=== PATIENT | male | born 1990 | race Caucasian/White ===

== ENCOUNTER 2022-12-23 00:09 | Emergency (ER) | payer OTHER, SELFPAY ==
[2022-12-23 00:11] VITALS: BP 133/85; PULSE 83; RESP 16; TEMP 36.6; O2SAT 99; BMI 25.0
--- NOTE | 2022-12-23 00:46 | EX.ED.DYSGE1 ---
HPI History of Present Illness Chief Complaint: Wound Check Informant: patient and spouse/S.O. Narrative Narrative: Patient is a 32-year-old male with past medical history of spinal cord injury. The previous spinal cord injury has caused him to the need to perform self catheterizations. Secondary to this chronic issue he has had a sacral nerve stimulator placed to see if the stimulator can lead to regeneration of his bladder nerves. Patient states that this evening he noticed that his dressing was becoming undone and he did not have any type of supplies at home to reinforce or support the dressing and therefore comes in for evaluation. He denies any fevers chills or concern for infection. PFSH PFS Medical History unable to obtain Home Medications Unobtainable 12/23/22 [History Last Taken Unknown] Allergy/AdvReac Type Severity Reaction Status Date / Time No Known Allergies Allergy Verified 12/23/22 00:10 Social History Smoking Status: Never smoker ROS ROS ED Constitutional Constitutional ED: Denies chills or fever(s) ENT ENT ED: Denies sore throat Cardiovascular Cardiovascular: Denies chest pain Respiratory/Chest Respiratory/Chest: Denies cough or dyspnea Gastrointestinal Gastrointestinal: Denies abdominal pain, diarrhea, nausea or vomiting Musculoskeletal Musculoskeletal: Denies myalgias Integumentary Reports other Details: Positive surgical wound Neurologic Neurologic: Denies headache(s) Hematologic/Lymphatic Hematologic/Lymphatic: Denies easy bleeding or easy bruising EXAM Physical Exam Const Vital Signs: 12/23/22 00:11 Temperature 98 F Temperature Source Temporal Pulse Rate 83 Respiratory Rate 16 Blood Pressure 133/85 H Blood Pressure Mean 101 Pulse Ox 99 Positive well nourished and well developed General Appearance ED: well developed HEENT HEENT Narrative: Normocephalic atraumatic Eyes PERRL and EOMs intact bilaterally Neck supple Resp normal respiratory effort and clear to auscultation bilaterally Cardio regular rate and regular rhythm Extremity normal to inspection Neuro oriented x3 and CN's II-XII intact bilaterally Sensorium / Orientation: alert Psych mental status grossly normal Skin no rashes or lesions noted Skin Narrative: Patient has surgical wound from recent stimulator placement. No secondary changes to suggest infection MDM MDM MDM Narrative Medical decision making narrative: Patient presented to the ER with stable vitals and reported that his wound dressing was coming off. By exam there were no secondary changes to suggest infection or dehiscence. Therefore do not feel there is need for any type of imaging or laboratory studies. The wound was simply redressed by the nurse. Therefore at this time as he does not have signs of dehiscence recurrent bleeding or signs of infection there is no need for any type of imaging or laboratory studies and is otherwise safe for discharge. History & Record Review Discussion w/independent historian: Patient and Significant other Discharge Plan Triage Chief Complaint: Wound Check ED Provider: Alphonse Hercules Dx/Rx/DC Orders Clinical Impression: Encounter for post surgical wound check, History of spinal cord injury Instructions: ED Post Op Wound Check, General Prescriptions: No Action Unobtainable [facility] [Primary Care Provider] - Disposition Disposition: Home, Self Care Discharge Date/Time: 12/23/22 00:48
== END 2022-12-23 00:48 | disposition home or self-care (01) ==
PROVIDERS: Emergency Provider Emergency Medicine; Visit Provider Emergency Medicine
DX: Z51.89 Encounter for other specified aftercare (principal)
CPT/HCPCS: 99282

== ENCOUNTER → 2023-08-19 | Outpatient (CLI) | payer OTHER, SELFPAY ==
--- NOTE | 2023-08-21 14:41 | STRESSREP ---
Stress Test Report Date: 08/19/2023 Procedure: Exercise tolerance test Indications: Palpitations Consent: Per the patient Procedure: The patient exercised on a Bertrand protocol for 9 minutes and 59 seconds achieving a peak heart rate of 196 bpm (103% predicted maximal heart rate) with a peak blood pressure 144/84 mmHg and a peak MET capacity of approximately 13.3 MET's. The baseline ECG demonstrated sinus tachycardia. The peak exercise ECG demonstrated no significant ischemic changes. [There were no cardiac dysrhythmias pretest, during exercise, or recovery]. The functional capacity was considered normal for age. The patient had no complaint of chest discomfort during exercise or recovery. The examination was discontinued secondary to achieving target heart rate. Impression: 1. Technically adequate (percent predicted maximal heart rate greater than 85%) exercise tolerance test 2. Stress test is negative for exercise-induced chest pain. 3. Stress test test is negative for exercise-induced EKG changes of ischemia. 4. Functional capacity is normal for age This note was generated with [email or web address] software. It may contain incorrect words, spelling, and punctuation that were not noted in checking the note before signing.
== END | disposition home or self-care (01) ==
DX: R00.2 Palpitations (principal)
CPT/HCPCS: 93017

== ENCOUNTER → 2023-10-10 | Outpatient (CLI) | payer OTHER, SELFPAY ==
--- NOTE | 2023-10-10 06:59 | ECHOD_ITS ---
Reason For Study: PALPITATIONS Procedure This was a 2D Doppler, Color Flow transthoracic echocardiogram. Exam performed in department. Left Ventricle Normal LV size. Left ventricular systolic function is normal. The left ventricular ejection fraction is 55 %. Normal diastology for age. No regional wall motion abnormalities noted. Right Ventricle Normal RV size. Normal systolic function. Atria Normal left atrium. Normal right atrium. Mitral Valve Normal mitral valve. Tricuspid Valve Normal tricuspid valve. Aortic Valve Normal aortic valve. Pulmonic Valve Normal pulmonic valve. Great Vessels Normal aortic root. The pulmonary artery is normal size. Normal inferior vena cava. Pericardium/Pleural No pericardial effusion. MMode/2D Measurements & Calculations LVIDd: 4.1 cm IVSd: 0.84 cm Ao root diam: 2.8 cm LVIDs: 2.9 cm LVPWd: 0.81 cm RVDd: 2.9 cm FS: 30.6 % LAV(MOD-bp): 25.1 ml LVAd ap4: 20.5 cm2 LVAd ap2: 20.5 cm2 LAV(MOD-bp) Indexed: 14.3 ml/m2 LVLd ap4: 7.3 cm LVLd ap2: 7.6 cm LAV(MOD-sp2): 25.4 ml EDV(MOD-sp4): 49.6 ml EDV(MOD-sp2): 46.9 ml LAV(MOD-sp4): 25.1 ml EDV(sp4-el): 48.9 ml EDV(sp2-el): 47.1 ml LVAs ap4: 11.8 cm2 LVAs ap2: 11.4 cm2 LVLs ap4: 5.5 cm LVLs ap2: 6.1 cm ESV(MOD-sp4): 22.5 ml ESV(MOD-sp2): 18.5 ml ESV(sp4-el): 21.3 ml ESV(sp2-el): 18.2 ml EF(MOD-sp4): 54.6 % EF(MOD-sp2): 60.6 % EF(sp4-el): 56.5 % SV(MOD-sp4): 27.1 ml SV(MOD-sp2): 28.4 ml SV(sp4-el): 27.6 ml LA dimension(2D): 3.0 cm LA A4 area: 11.2 cm2 RA A4 area: 8.2 cm2 TAPSE: 2.3 cm Time Measurements MV dec time: 0.12 sec Doppler Measurements & Calculations MV E max russ: 63.8 cm/sec Lat Peak E' Russ: 13.2 cm/sec Med Peak E' Russ: 12.8 cm/sec MV A max russ: 55.1 cm/sec E/E' lat: 4.8 E/E' med: 5.0 MV E/A: 1.2 MV V2 max: 80.3 cm/sec MV P1/2t max russ: 72.3 cm/sec Ao V2 max: 101.2 cm/sec MV max P.6 mmHg MV P1/2t: 61.4 msec Ao max P.1 mmHg MV V2 mean: 57.3 cm/sec MV dec slope: 345.0 cm/sec2 Ao V2 mean: 72.5 cm/sec MV mean P.4 mmHg Ao mean P.3 mmHg MV V2 VTI: 16.9 cm MVA(P1/2t): 3.6 cm2 Ao V2 VTI: 15.9 cm AV (velocity ratio): 0.82 LV V1 max: 85.2 cm/sec PA V2 max: 94.7 cm/sec LV V1 max P.9 mmHg PA V2 mean: 68.6 cm/sec LV V1 mean P.5 mmHg LV V1 mean: 59.6 cm/sec LV V1 VTI: 13.0 cm ECHO/Echo Complete Interpretation Summary Normal LV size. Left ventricular systolic function is normal. The left ventricular ejection fraction is 55 %. Normal diastology for age. Ordering Physician: Yu Sotomayor Referring Physician: [facility] Performed By: Verena Lucas RDCS, RVT
== END | disposition home or self-care (01) ==
LOC: CVS 06:58
PROVIDERS: Referring Provider Nurse Practitioner Adult Health; Visit Provider Nurse Practitioner Adult Health
DX: R00.2 Palpitations (principal); R00.0 Tachycardia, unspecified
CPT/HCPCS: 93306

== ENCOUNTER 2024-05-14 16:18 | Outpatient (CLI) | payer OTHER, SELFPAY ==
[2024-05-14 17:30] LABS: Erythrocyte Sedimentation Rate 1 mm/hr (0-20)
[2024-05-14 17:57] LABS: ALB/GLOB Ratio 1.1 RATIO (0.9-2.4); AST(SGOT) 22 U/L (15-37); Alanine Aminotransfer ALT/SGPT 59 U/L (16-61); Albumin, Serum 4.2 g/dL (3.2-5.0); Alkaline Phosphatase 99 U/L (45-117); Anion Gap 4 (5-15); BUN 15 mg/dL (7-18); BUN/Creat Ratio 13.2 RATIO (10-20); CPK Total, Creatine Kinase 116 U/L (39-308); CRP < 2.90 mg/L (0.0-3.0); Calcium,Total 9.5 mg/dL (8.5-10.1); Chloride 104 mmol/L (98-107); Creatinine, Serum 1.14 mg/dL (0.70-1.30); EST Glomerular Filtration Rate 79 mL/min (>60); Est Glom Filt Rate - Afr Amer 95 mL/min (>60); Ferritin 88 ng/mL (26-388); Globulin 3.8 g/dL (2.2-4.2); Glucose 100 mg/dL (74-106); LDH 179 U/L (87-241); Sodium Level 138 mmol/L (136-145); Thyroid Stim Hormone (TSH) 0.881 uIU/mL (0.358-3.740)
[2024-05-17 10:02] LABS: Vitamin B12 > 2000 pg/mL (211-911)
[2024-05-20 09:08] LABS: Anti-Mitochondrial AB <20.0 Units (0.0-20.0); Beef <0.10 kU/L (Class 0); Chocolate <0.10 kU/L (Class 0); Codfish <0.10 kU/L (Class 0); Corn <0.10 kU/L (Class 0); Egg, Whole <0.10 kU/L (Class 0); Milk (Cow) <0.10 kU/L (Class 0); Mussels <0.10 kU/L (Class 0); Peanut <0.10 kU/L (Class 0); Pork <0.10 kU/L (Class 0); Salmon <0.10 kU/L (Class 0); Shrimp <0.10 kU/L (Class 0); Soybean <0.10 kU/L (Class 0); Tuna <0.10 kU/L (Class 0); Wheat <0.10 kU/L (Class 0)
[2024-05-21 12:08] LABS: ACCA 6 units (0-90); ALCA 3 units (0-60); AMCA 19 units (0-100); Albumin 4.3 g/dL (2.9-4.4); Aldolase 5.1 U/L (3.3-10.3); Alpha-1-Globulins 0.3 g/dL (0.0-0.4); Angiotensin Convert Enzyme 72 U/L (14-82); Anti-Smooth Muscle ABS 4 Units (0-19); Chromogranin A 63.1 ng/mL (0.0-101.8); Cytoplasmic Ab (C-ANCA) <1:20 titer (Neg:<1:20); Dopamine, Pl <30 pg/mL (0-48); Endomysial Antibody IgA Negative (Negative); Epinephrine, Pl 62 pg/mL (0-62); Gamma Globulin 0.9 g/dL (0.4-1.8); HEPATITIS B SURFACE AG Negative (Negative); Hep C Antibodies Non Reactive (Non Reactive); Hepatitis A IgM Antibody Negative (Negative); Hepatitis B Core AB IgM Negative (Negative); IgG, Quant 918 mg/dL (603-1613); Immunoglobulin A 118 mg/dL (90-386); Immunoglobulin E 8 IU/mL (6-495); Immunoglobulin G, Subclass 1 583 mg/dL (248-810); Immunoglobulin G, Subclass 2 108 mg/dL (130-555); Immunoglobulin G, Subclass 3 30 mg/dL (15-102); Immunoglobulin G, Subclass 4 17 mg/dL (2-96); Immunoglobulin M 108 mg/dL (20-172); Norepinephrine, Pl 391 pg/mL (0-874); PROEL- TOTAL PROTEIN 7.9 g/dL (6.0-8.5); Perinuclear Ab (P-ANCA) <1:20 titer (Neg:<1:20); QNTFERON TB Mitogen Value > 10.00 IU/mL (.); QNTFERON TB Nil Value 0.01 IU/mL (.); QNTFERON TB1+ Ag Value 0.02 IU/mL (.); QNTFERON TB2+ Ag Value 0.02 IU/mL (.); QNTIFERON TB Positive Criteria Negative (Negative); gASCA 8 units (0-50); t-Transglutaminase IgA <2 U/mL (0-3)
== END 2024-05-14 23:59 | disposition home or self-care (01) ==
PROVIDERS: Referring Provider Internal Medicine Gastroenterology; Visit Provider Internal Medicine Gastroenterology
DX: R10.9 Unspecified abdominal pain (principal); K62.5 Hemorrhage of anus and rectum
CPT/HCPCS: 36415; 80053; 80074; 82085; 82164; 82384; 82550; 82607; 82728; 82746; 82784; 82785; 82787; 83516; 83615; 84165; 84443; 85652; 86003; 86005; 86036; 86037; 86140; 86255; 86316; 86334; 86480; 86671

== ENCOUNTER 2024-08-09 06:46 | Day surgery (SDC) | payer OTHER, SELFPAY ==
--- NOTE | 2024-08-04 16:27 | PAT.ANE_ITS ---
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 When Was Last Pacemaker Check QUESTION #4 FULL TEXT: You/Your Family Experience fever (hyperthermia) with Anesthesia Last Oral Intake Last Oral intake: Last Oral Intake NPO since Meds taken in AM with sips of water? 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 - biblical languages professor: PONV - biblical languages professor Female No 08/04/24 12:12 HX of Motion Sickness No 08/04/24 12:12 HX of N/V After Surgery No 08/04/24 12:12 Non-Smoker Yes 08/04/24 12:12 Duration of Surgery greater No 08/04/24 12:12 than 60 minutes Number of Risk Factors 1 08/04/24 12:12 PONV Score Low Risk 08/04/24 12:12 Height & Weight Height & Weight: Anesthesia: Height & Weight Height 5 ft 5 in 12/23/22 00:11 Respiratory Assessment Respiratory Assessment - biblical languages professor: Respiratory Tract Infection Hx - biblical languages professor Hx Respiratory Tract Infection No 08/04/24 12:12 STOP Sleep Apnea STOP Sleep Apnea - biblical languages professor: STOP Sleep Apnea - biblical languages professor Hx Hypertension No 08/04/24 12:12 Hx Sleep Apnea No 08/04/24 12:12 CPAP BIPAP Do you snore loudly (louder No 08/04/24 12:12 than talking or can be heard Do you often feel tired/ No 08/04/24 12:12 fatigued/ sleepy during daytime? Has anyone observed you stop No 08/04/24 12:12 breathing during sleep? STOP Results Negative 08/04/24 12:12 QUESTION #5 FULL TEXT : Do you snore loudly (louder than talking or can be heard through closed doors)? 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 Specify any problems Hx of Preganancy in last 3 N/A 08/04/24 12:12 Months Nurse Filling Out Transfusion VCHRISTIN 08/04/24 12:12 & Questions: Date: 08/04/24 08/04/24 12:12 Time: 12:14 08/04/24 12:12 Patient unable to answer at this time (ie. 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 History - biblical languages professor: /Reproductive Hx- biblical languages professor Hx Now Gestational Age (in weeks): EDC: Hx Hx Para Hx Section SAB [facility] Medical History (Updated 08/04/24 @ 12:12 by Brenna Cruz) Wears contact lenses Wears glasses Back pain Injury of back Gastric reflux Chewing tobacco dependence History of pain when walking History of echocardiogram History of stress test Vertigo Restless legs Tinnitus Hearing loss Low back pain Urinary frequency Migraine Neurogenic bladder Male infertility Transverse myelitis Abdominal pain Hemorrhage of anus and rectum Home Medications ?Medication ?Instructions ?Recorded ?Last Taken ?Type cyanocobalamin (vitamin B-12) 1,000 mcg PO QDAY Unknown History 1,000 mcg tablet magnesium oxide 420 mg tablet 420 mg PO QDAY 03/04/24 Unknown History omeprazole 20 mg tablet,delayed 20 mg PO QDAY 03/04/24 Unknown History release riboflavin (vitamin B2) 100 mg 200 mg PO BID 03/04/24 Unknown History tablet rizatriptan 10 mg disintegrating See Rx Instructions P O .COMPLEX 03/04/24 Unknown History tablet ropinirole 0.25 mg tablet 0.5 mg PO QHS 03/04/24 Unkno wn History atenolol 25 mg tablet 25 mg PO DAILY 08/04/24 Unkn own History Allergy/AdvReac Type Severity Reaction Status Date / Time No Known Allergies Allergy Verified 08/04/24 11:57 Family History Other Colon cancer Surgical History (Updated 08/04/24 @ 12:12 by Brenna Cruz) Hx of eye surgery Hx of surgical procedure Social History Smoking Status: Never smoker Audit: Pertinent Findings Pertinent Findings Stress test pertinent findings: 08/19/2023. Negative. Echo (EF%) pertinent findings: 10/10/2023. EF 55% Recommendation Anesthesia Recommendation Anesthesia recommendation: OPTIMIZED for anesthesia
[2024-08-09] VITALS (8 sets, daily range): BP systolic 86–99; BP diastolic 54–78; PULSE 59–72; RESP 14–16; TEMP 36.1–36.6; O2SAT 95–100; BMI 27.2
--- NOTE | 2024-08-09 07:28 | PRE.ANES_ITS ---
ASA Classification* ASA Classification ASA Classification: 2 Assessment & Plan Anesthesia* Anesthesia Assessment Anesthesia Assessment: Discussed sedation and/or anesthesia options, risks, benefits, and alternatives with patient/parents/legal guardian/POA. Questions invited. The patient/parents/legal guardian/POA seems to understand and agrees to proceed with anesthesia plan. Reviewed the physical assessment, medical history, allergy history and patient home medications list prior to surgery/procedure/anesthetic and documented any changes. Performed airway and anesthesia risk assessments. Anesthesia Type Anesthesia Type: MAC Anesthesia Focused Assessment* Temperature: 97.8 F Pulse Rate: 68 Blood Pressure: 99/74 Respiratory Rate: 16 Pulse Ox: 100 Airway Assessment Mouth opens: >3 cm Mallampati Score: II Focused Labs Anesthesia Preop lab: CBC CHEMISTRY Potassium 4.0 mmol/L (3.5-5.1) 05/14/24 16:34 05/14/24 Sodium 138 mmol/L (136-145) 05/14/24 16:34 05/14/24 BUN 15 mg/dL (7-18) 05/14/24 16:34 05/14/24 Creatinine 1.14 mg/dL (0.70-1.30) 05/14/24 16:34 05/14/24 Glucose 100 mg/dL (74-106) 05/14/24 16:34 05/14/24 TSH 0.881 uIU/mL (0.358-3.740) 05/14/24 16:34 04/28 11/19 COAG Pre-Assessment Diagnosis/Proposed Procedure Planned Operative Procedure(s): COLONOSCOPY/EGD Anesthesia History 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 When Was Last Pacemaker Check QUESTION #4 FULL TEXT: You/Your Family Experience fever (hyperthermia) with Anesthesia Last Oral Intake Last Oral intake: Last Oral Intake NPO since 04:15 08/09/24 07:13 Meds taken in AM with sips of No 08/09/24 07:13 water? 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 Female No 08/04/24 12:12 HX of Motion Sickness No 08/04/24 12:12 HX of N/V After Surgery No 08/04/24 12:12 Non-Smoker Yes 08/04/24 12:12 Duration of Surgery greater No 08/04/24 12:12 than 60 minutes Number of Risk Factors 1 08/04/24 12:12 PONV Score Low Risk 08/04/24 12:12 Height & Weight Height & Weight: Anesthesia: Height & Weight Height 5 ft 5 in 08/09/24 07:13 Weight: 74.3 kg 08/09/24 07:13 Body Mass Index (BMI) 27.2 08/09/24 07:13 Respiratory Assessment Respiratory Assessment - automatic drilling machine operator: Respiratory Tract Infection Hx - automatic drilling machine operator Hx Respiratory Tract Infection No 08/04/24 12:12 STOP Sleep Apnea STOP Sleep Apnea - automatic drilling machine operator: STOP Sleep Apnea - automatic drilling machine operator Hx Hypertension No 08/04/24 12:12 Hx Sleep Apnea No 08/04/24 12:12 CPAP BIPAP Do you snore loudly (louder No 08/04/24 12:12 than talking or can be heard Do you often feel tired/ No 08/04/24 12:12 fatigued/ sleepy during daytime? Has anyone observed you stop No 08/04/24 12:12 breathing during sleep? STOP Results Negative 08/04/24 12:12 QUESTION #5 FULL TEXT : Do you snore loudly (louder than talking or can be heard through closed doors)? 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 Specify any problems Hx of Preganancy in last 3 N/A 08/04/24 12:12 Months Nurse Filling Out Transfusion VCHRISTIN 08/04/24 12:12 & Questions: Date: 08/04/24 08/04/24 12:12 Time: 12:14 08/04/24 12:12 Patient unable to answer at this time (ie. 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 machine operator Hx Now Gestational Age (in weeks): EDC: Hx Hx Para Hx Section SAB PFSH Medical History Wears contact lenses Wears glasses Back pain Injury of back Gastric reflux Chewing tobacco dependence History of pain when walking History of echocardiogram History of stress test Vertigo Restless legs Tinnitus Hearing loss Low back pain Urinary frequency Migraine Neurogenic bladder Male infertility Transverse myelitis Abdominal pain Hemorrhage of anus and rectum Home Medications ?Medication ?Instructions ?Recorded ?Last Taken ?Type cyanocobalamin (vitamin B-12) 1,000 mcg PO QDAY Unknown History 1,000 mcg tablet magnesium oxide 420 mg tablet 420 mg PO QDAY 03/04/24 Unknown History omeprazole 20 mg tablet,delayed 20 mg PO QDAY 03/04/24 Unknown History release riboflavin (vitamin B2) 100 mg 200 mg PO BID 03/04/24 Unknown History tablet rizatriptan 10 mg disintegrating See Rx Instructions P O .COMPLEX 03/04/24 Unknown History tablet ropinirole 0.25 mg tablet 0.5 mg PO QHS 03/04/24 Unkno wn History atenolol 25 mg tablet 25 mg PO DAILY 08/04/24 Unkn own History Allergy/AdvReac Type Severity Reaction Status Date / Time No Known Allergies Allergy Verified 08/09/24 07:08 Family History Other Colon cancer Surgical History Hx of eye surgery Hx of surgical procedure Social History Smoking Status: Never smoker Review of Systems (Anesthesia) ROS Narrative System reviewed and no additional complaints, except as documented.
--- NOTE | 2024-08-09 07:45 | COLBX_PTH ---
PATIENT: REYES REYNOLDS LOC: EN U#:[id number] AGE/SX: 33/M ROOM: RE08/09/[address]: Dr. Nir Lyons DO : 1990 BED: DIS: 08/09/2024 SPEC #: [id number] RECD: 08/09/24 10:58 STATUS: TAYLER CAMILO #: [id number] ANALIA: 08/09/24 07:[address]: Nir Lyons DEPT: SURGICAL PATHOLOGY RECD BY: Sanjay Parker ENTERED: 08/09/24 11:30 SP TYPE: COLON BX OTHR DR: [facility] Tissues: A - Duodenum, NOS B - Gastric mucous membrane C - Ileum, NOS Procedures: Immunohistochemical Stains Surgery Specimen Level IV HEADER OPERATION: Colonoscopy with biopsy, EGD with biopsy PRE-OP DIAGNOSIS: Abdominal pain, hemorrhage of anus and rectum TISSUE SUBMITTED: A- Duodenum biopsy, B- Gastric body biopsy, C- Terminal ileum biopsy MICROSCOPIC DIAGNOSIS A. Small bowel, duodenum, biopsy: * Normal villous architecture with no specific pathologic change. * Negative for increased intraepithelial lymphocytes B. Stomach, body, biopsy: * Oxyntic mucosa with slight chronic inflammation. * IHC negative for H pylori organisms C. Small bowel, terminal ileum, biopsy: * Normal villous architecture with mucosal lymphoid aggregates, favor reactive. MICROSCOPIC DESCRIPTION Slides are reviewed. These tests were developed and their performance characteristics determined by [facility]. They may not have been cleared or approved by the U.S. Food and Drug Administration. The FDA has determined that such clearance or approval is not necessary. The above immunohistochemical/dualISH markers are ordered and reviewed by the Pathologist. GROSS DESCRIPTION A. Received in formalin in a container labeled with the patient's name, date of , and duodenum biopsy are multiple gifford-pink fragments of mucosal tissue measuring 0.7 x 0.6 x 0.2 cm in aggregate. Submitted in toto in A1. B. Received in formalin in a container labeled with the patient's name, date of , and gastric body for H. pylori and pathology are 2 gifford-pink fragments of mucosal tissue measuring 0.2 x 0.2 x 0.2 cm and 0.8 x 0.3 x 0.2 cm. Submitted in toto in B1. C. Received in formalin in a container labeled with the patient's name, date of , and terminal ileum biopsy are multiple gifford-pink fragments of mucosal tissue measuring 1.5 x 0.7 x 0.2 cm in aggregate. Submitted in toto in C1. SMB 08/16/2024 CPT:61328g3,79824
--- NOTE | 2024-08-09 08:02 | PCM.HP.STD ---
HPI - General General Date of Admission: 08/09/24 Date of Service: 08/09/24 Chief Complaint: lower GI bleeding HPI Narrative REYES REYNOLDS, is a 33 M who presents to the office today for an evaluation lower GI bleeding. Patient reports intermittent rectal bleeding over the last few years. Became more frequent this past December. Will see bright red blood when wiping after a BM. States the last couple weeks it has not been as severe. Denies pain with BM. Has 1-3 BM daily. Denies straining. Has intermittent diarrhea. Has lower abdominal pain and cramping with BMs. Has been taking OTC probiotic that has been somewhat helpful. He also has a history of recurrent transverse myelitis resulting in urinary outflow problems and need to self cath. He had a spinal stimulator placed that has not helped his urinary issues. The bleeding started approximately 12 years ago with intermittent crampy abdominal pain. He has no family history of ulcerative colitis. He has no history of any liver disease. His weight has been stable. He did get a rash on his lower extremity but he thought that was associated with a possible contrast dye allergy from his CT scan. He does not take any blood thinners. He has no bleeding issues with spontaneous bleeding or easily bruising. He has no known food allergies. [facility] Medical History Wears contact lenses Wears glasses Back pain Injury of back Gastric reflux Chewing tobacco dependence History of pain when walking History of echocardiogram History of stress test Vertigo Restless legs Tinnitus Hearing loss Low back pain Urinary frequency Migraine Neurogenic bladder Male infertility Transverse myelitis Abdominal pain Hemorrhage of anus and rectum Home Medications ?Medication ?Instructions ?Recorded ?Last Taken ?Type cyanocobalamin (vitamin B-12) 1,000 mcg PO QDAY 03/04/24 Unknown History 1,000 mcg tablet magnesium oxide 420 mg tablet 420 mg PO QDAY 03/04/24 Unknown History omeprazole 20 mg tablet,delayed 20 mg PO QDAY 03/04/24 Unknown History release riboflavin (vitamin B2) 100 mg 200 mg PO BID 03/04/24 Unknown History tablet rizatriptan 10 mg disintegrating See Rx Instructions PO .COMPLEX 03/04/24 Unknown History tablet ropinirole 0.25 mg tablet 0.5 mg PO QHS 03/04/24 Unknown History atenolol 25 mg tablet 25 mg PO DAILY 08/04/24 Unknown History Allergy/AdvReac Type Severity Reaction Status Date / Time No Known Allergies Allergy Verified 08/09/24 07:08 Family History Other Colon cancer Surgical History Hx of eye surgery Hx of surgical procedure Social History Smoking Status: Never smoker ROS Constitutional Constitutional: Denies fatigue, fever(s), poor appetite, weight gain or weight loss Gastrointestinal Gastrointestinal: Denies belching, bloating, change in bowel habits, change in stool character, chewing difficulty, coffee ground emesis, constipation, cramping, diarrhea, dyspepsia, dysphagia, early satiety, excessive flatus, fecal incontinence, heartburn, hematemesis, hematochezia, hemorrhoids, loose stools, melena, nausea, odynophagia, rectal bleeding, tenesmus, vomiting or weight changes Vital Signs Vital Signs Vital Signs: 08/09/24 07:13 08/09/24 07:13 08/09/24 07:29 Temperature 97.8 F 97.8 F Temperature Source Temporal Pulse Rate 68 68 Respiratory Rate 16 16 Respiratory Pattern Normal Blood Pressure 99/74 99/74 Blood Pressure Mean 82 Blood Pressure Source Monitor Blood Pressure Position Sitting Blood Pressure Location Left Arm Pulse Ox 100 100 Oxygen Delivery Method Room Air Weight Weight: 163 lb 12.855 oz Body Mass Index (BMI) 27.2 Physical Exam Const alert, oriented x3, no apparent distress and healthy appearing General Appearance: cooperative GI normal to inspection, nondistended, normoactive bowel sounds, soft to palpation, non-tender and non-distended Percussion: normal to percussion Rectal Exam: deferred Assessment & Plan Assessment/Plan (1) Abdominal pain: (2) Hemorrhage of anus and rectum: PLAN: Assessment and Plan Assessment and Plan (1) Abdominal pain: Status: Acute (2) Hemorrhage of anus and rectum: Status: Acute Plan: Differential diagnosis for his symptoms does include inflammatory bowel disease, vasculitis, celiac disease, IBS with lower GI bleeding, hemorrhoidal bleeding. He will undergo upper and lower endoscopy to evaluate his upper lower GI tract. Will also send biochemical workup for inflammatory bowel disease, celiac disease and other autoimmune disease. He is okay with this plan. Orders:
--- NOTE | 2024-08-09 08:45 | PCM.POST.ANE ---
Anesthesia: Postop Eval I Current Vital Signs Temperature: 97 F Pulse Rate: 72 Blood Pressure: 86/60 Respiratory Rate: 16 Pulse Ox: 96 Oxygen Delivery Method: Room Air Assessment Airway patent: Yes Spontaneous unlabored respirations: Yes Mental status: Asleep nausea: No Vomiting: No Anesthesia Complication: No Fluid Hydration Crystalloid volume administer (ml): 55 Total IV fluid infused: 55 Progress Note Anesthesia document: Postop Eval 1 completed: Yes
--- NOTE | 2024-08-09 08:48 | OP.CCLET_ITS ---
08/09/2024 [facility] Re : Upper GI endoscopy procedure for [facility] This procedure was performed on Friday, August 09, 2024. My impressions and recommendations are as follows: Impressions : - Normal esophagus. - Chronic gastritis. Biopsied. - Erythematous duodenopathy. Biopsied. Recommendations : - Discharge patient to home. - Resume previous diet. - Continue present medications. - Await pathology results. My findings are described in the full procedure note, which is enclosed. If I can be of further assistance, please feel free to contact me at . Sincerely, Nir Lyons, 08/09/2024 8:48:02 AM This report has been signed electronically.
--- NOTE | 2024-08-09 08:48 | OP.EGD_ITS ---
Patient Name: Asa Armando Procedure Date: 08/09/2024 8:35 AM Date of : 1990 Age: 33 Procedure: Upper GI endoscopy Indications: Epigastric abdominal pain Providers: Nir Lyons DO Referring MD: [facility] Medicines: Monitored Anesthesia Care Patient Profile: This is a 33 year old male. Refer to note in patient chart for documentation of history and physical. Patient has symptoms of chronic epigastric abdominal pain, chronic dyspepsia and chronic nausea. Complications: No immediate complications. Procedure: Pre-Anesthesia Assessment: - Prior to the procedure, a History and Physical was performed, and patient medications and allergies were reviewed. The patient is competent. The risks and benefits of the procedure and the sedation options and risks were discussed with the patient. All questions were answered and informed consent was obtained. Patient identification and proposed procedure were verified by the physician in the pre-procedure area. Mental Status Examination: alert and oriented. Airway Examination: normal oropharyngeal airway and neck mobility. Respiratory Examination: clear to auscultation. CV Examination: normal. Prophylactic Antibiotics: The patient does not require prophylactic antibiotics. Prior Anticoagulants: The patient has taken no anticoagulant or antiplatelet agents except for NSAID medication. ASA Grade Assessment: II - A patient with mild systemic disease. After reviewing the risks and benefits, the patient was deemed in satisfactory condition to undergo the procedure. The anesthesia plan was to use monitored anesthesia care (MAC). Immediately prior to administration of medications, the patient was re-assessed for adequacy to receive sedatives. The heart rate, respiratory rate, oxygen saturations, blood pressure, adequacy of pulmonary ventilation, and response to care were monitored throughout the procedure. The physical status of the patient was re-assessed after the procedure. After obtaining informed consent, the endoscope was passed under direct vision. Throughout the procedure, the patient's blood pressure, pulse, and oxygen saturations were monitored continuously. The gastroscope was introduced through the mouth, and advanced to the jejunum. Small bowel enteroscopy was deemed necessary. The upper GI endoscopy was accomplished without difficulty. The patient tolerated the procedure well. Scope In: 8:16:02 AM Scope Out: 8:19:24 AM Total Procedure Duration Time 0 hours 3 minutes 22 seconds Findings: The examined esophagus was normal. Diffuse mild inflammation characterized by erythema was found in the stomach. Biopsies were taken with a cold forceps for histology. Verification of patient identification for the specimen was done. Biopsies were taken with a cold forceps for Helicobacter pylori testing. Verification of patient identification for the specimen was done. Estimated blood loss was minimal. Patchy mildly erythematous mucosa without active bleeding and with no stigmata of bleeding was found in the duodenal bulb, in the first portion of the duodenum and in the third portion of the duodenum. Biopsies were taken with a cold forceps for histology. Verification of patient identification for the specimen was done. Estimated blood loss was minimal. A benign-appearing, intrinsic moderate stenosis was found at the pylorus. This was traversed. Impression: - Normal esophagus. - Chronic gastritis. Biopsied. - Erythematous duodenopathy. Biopsied. Recommendation: - Discharge patient to home. - Resume previous diet. - Continue present medications. - Await pathology results. Procedure Code(s): --- Professional --- 95163, Small intestinal endoscopy, enteroscopy beyond second portion of duodenum, not including ileum; with biopsy, single or multiple CPT copyright 2021 [employer]. All rights reserved. The codes documented in this report are preliminary and upon engineering associate review may be revised to meet current compliance requirements. Nir Lyons DO 08/09/2024 8:48:02 AM This report has been signed electronically. Number of Addenda: 0 Note Initiated On: 08/09/2024 8:35 AM
--- NOTE | 2024-08-09 08:51 | OP.CCLET_ITS ---
08/09/2024 Re : Colonoscopy procedure for [facility] This procedure was performed on Friday, August 09, 2024. My impressions and recommendations are as follows: Impressions : - Anal fissure. - Mild mucosal changes were found in the ileum secondary to ileitis. Biopsied. Recommendations : - Discharge patient to home. - Resume previous diet. - Continue present medications. - Await pathology results. - Repeat colonoscopy for surveillance based on pathology results. My findings are described in the full procedure note, which is enclosed. If I can be of further assistance, please feel free to contact me at . Sincerely, Nir Lyons, 08/09/2024 8:50:28 AM This report has been signed electronically.
--- NOTE | 2024-08-09 08:51 | OP.COLON_ITS ---
Patient Name: Asa Armando Procedure Date: 08/09/2024 8:08 AM Date of : 1990 Age: 33 Procedure: Colonoscopy Indications: Hematochezia Providers: Nir Lyons DO Referring MD: [facility] Medicines: Monitored Anesthesia Care Patient Profile: This is a 33 year old male. Refer to note in patient chart for documentation of history and physical. Last Colonoscopy: none. The patient's first colonoscopy is today. Complications: No immediate complications. Procedure: Pre-Anesthesia Assessment: - Prior to the procedure, a History and Physical was performed, and patient medications and allergies were reviewed. The patient is competent. The risks and benefits of the procedure and the sedation options and risks were discussed with the patient. All questions were answered and informed consent was obtained. Patient identification and proposed procedure were verified by the physician. Mental Status Examination: alert and oriented. Airway Examination: normal oropharyngeal airway and neck mobility. Respiratory Examination: clear to auscultation. CV Examination: normal. Prophylactic Antibiotics: The patient does not require prophylactic antibiotics. Prior Anticoagulants: The patient has taken no anticoagulant or antiplatelet agents except for NSAID medication. ASA Grade Assessment: II - A patient with mild systemic disease. After reviewing the risks and benefits, the patient was deemed in satisfactory condition to undergo the procedure. The anesthesia plan was to use monitored anesthesia care (MAC). Immediately prior to administration of medications, the patient was re-assessed for adequacy to receive sedatives. The heart rate, respiratory rate, oxygen saturations, blood pressure, adequacy of pulmonary ventilation, and response to care were monitored throughout the procedure. The physical status of the patient was re-assessed after the procedure. After I obtained informed consent, the scope was passed under direct vision. Throughout the procedure, the patient's blood pressure, pulse, and oxygen saturations were monitored continuously. The Colonoscope was introduced through the anus and advanced to the terminal ileum. The colonoscopy was performed without difficulty. The patient tolerated the procedure well. The quality of the bowel preparation was adequate. The terminal ileum, ileocecal valve, appendiceal orifice, and rectum were photographed. Scope In: 8:21:28 AM Scope Withdrawal Time 0 hours 9 minutes 7 seconds Scope Out: 8:34:11 AM Total Procedure Duration Time 0 hours 12 minutes 43 seconds Findings: The perianal and digital rectal examinations were normal. A 5 mm anal fissure was found in the anal canal. No other significant abnormalities were identified in a careful examination of the remainder of the colon. Patchy mild mucosal changes were found in the distal ileum and in the terminal ileum. Biopsies were taken with a cold forceps for histology. Verification of patient identification for the specimen was done. Estimated blood loss was minimal. Impression: - Anal fissure. - Mild mucosal changes were found in the ileum secondary to ileitis. Biopsied. Recommendation: - Discharge patient to home. - Resume previous diet. - Continue present medications. - Await pathology results. - Repeat colonoscopy for surveillance based on pathology results. Procedure Code(s): --- Professional --- 23400, Colonoscopy, flexible; with biopsy, single or multiple CPT copyright 2021 [employer]. All rights reserved. The codes documented in this report are preliminary and upon insurance coder review may be revised to meet current compliance requirements. Nir Lyons DO 08/09/2024 8:50:28 AM This report has been signed electronically. Number of Addenda: 0 Note Initiated On: 08/09/2024 8:08 AM
--- NOTE | 2024-08-09 09:08 | PCM.POSTANE2 ---
Anesthesia Postop Eval I Sum Postop Eval Completion status Anesthesia document: Postop Eval 1 completed: Yes Anesthesia Postop Eval I Summary Anesthesia Postop Eval I Summary: Anesthesia Postop Eval I: Assessment Summary Airway patent Yes 08/09/24 08:45 [email or web address] Spontaneous unlabored Yes 08/09/24 08:45 [email or web address] respirations Mental status Asleep 08/09/24 08:45 [email or web address] nausea No 08/09/24 08:45 [email or web address] Vomiting No 08/09/24 08:45 [email or web address] Anesthesia Postop Eval I: Fluid Summary Crystalloid volume administer 55 08/09/24 08:45 [email or web address] (ml) Colloids volume administered ( ml) Blood Product volume administered (ml) Total IV fluid infused 55 08/09/24 08:45 [email or web address] Anesthesia Postop Eval I: Summary Notes Anesthesia Complication No 08/09/24 08:45 [email or web address] Anesthesia Complication Comment: Post-operative progress note Anesthesia: Postop Eval II Evaluation Mental status: Awake Pain Level: 0 nausea: No Vomiting: No
--- NOTE | 2024-08-09 09:09 | EKG12_ITS ---
Test Reason : CHEST PRESSURE Blood Pressure : */* mmHG Vent. Rate : 55 BPM Atrial Rate : 55 BPM P-R Int : 96 ms QRS Dur : 94 ms QT Int : 398 ms P-R-T Axes : 49 52 35 degrees QTcB Int : 380 ms Sinus bradycardia with short ID Early repolarization Otherwise normal ECG No previous ECGs available Confirmed by Raheem Garcia ([id number]), photographic editor NEIL SOLER ([id number]) on 08/11/2024 10:10:08 AM Referred By: [facility] Confirmed By: Raheem Garcia
== END 2024-08-09 09:54 | disposition home or self-care (01) ==
LOC: EN 06:48 → AC 06:49
PROVIDERS: Visit Provider Internal Medicine Gastroenterology
PROC: 0DJD8ZZ Inspection of Lower Intestinal Tract, Via Natural or Artificial Opening Endoscopic (ICD-10-PCS; CPT 45378; principal; 2024-08-09 07:40)
DX: K62.5 Hemorrhage of anus and rectum (principal); K29.50 Unspecified chronic gastritis without bleeding; K60.2 Anal fissure, unspecified; K63.89 Other specified diseases of intestine; K21.9 Gastro-esophageal reflux disease without esophagitis; K31.89 Other diseases of stomach and duodenum; K31.1 Adult hypertrophic pyloric stenosis; Z79.899 Other long term (current) drug therapy
CPT/HCPCS: 45380; 43239; 88305; 88342; 93005; A4216; J2405

== ENCOUNTER 2024-08-23 10:41 | Emergency (ER) | payer OTHER, SELFPAY ==
[2024-08-23 10:41] VITALS: BP 113/81; PULSE 69; RESP 16; TEMP 36.5; O2SAT 100; BMI 26.4
--- NOTE | 2024-08-23 13:03 | ED.VIS.BACK ---
HPI <KERRY Rodriguez - Last Filed: 08/23/24 14:25> History of Present Illness Chief Complaint: Back Narrative Narrative: Patient presenting today with right upper back pain he has had since yesterday. He reports that his pain started after lifting up his son who is about 20 pounds. He had been repeatedly lifting his son yesterday and did notice immediate pain at 1 point while lifting him. He has been taking ibuprofen with minimal relief of his pain. He reports that the pain is worse with certain movements of his back and right shoulder. He does report mild paresthesias to his right upper extremity with movement of his right shoulder. He reports history of previous rotator cuff tear and has had similar symptoms to this in the past. He denies direct trauma to his back or right upper extremity. He denies any fevers or chills. No bowel/bladder incontinence or saddle paresthesia. [facility] <KERRY Rodriguez - Last Filed: 08/23/24 14:25> [facility] Medical History Wears contact lenses Wears glasses Back pain Injury of back Gastric reflux Chewing tobacco dependence History of pain when walking History of echocardiogram History of stress test Vertigo Restless legs Tinnitus Hearing loss Low back pain Urinary frequency Migraine Neurogenic bladder Male infertility Transverse myelitis Abdominal pain Hemorrhage of anus and rectum Home Medications ?Medication ?Instructions ?Recorded ?Last Taken ?Type cyanocobalamin (vitamin B-12) 1,000 mcg PO QDAY 03/04/24 Unknown History 1,000 mcg tablet magnesium oxide 420 mg tablet 420 mg PO QDAY 03/04/24 Unknown History omeprazole 20 mg tablet,delayed 20 mg PO QDAY 03/04/24 Unknown History release riboflavin (vitamin B2) 100 mg 200 mg PO BID 03/04/24 Unknown History tablet rizatriptan 10 mg disintegrating See Rx Instructions PO .COMPLEX 03/04/24 Unknown History tablet ropinirole 0.25 mg tablet 0.5 mg PO QHS 03/04/24 Unknown History atenolol 25 mg tablet 25 mg PO DAILY 08/04/24 Unknown History metaxalone 800 mg tablet 800 mg PO TID PRN muscle pain #21 08/23/24 Unknown Rx tabs naproxen 500 mg tablet (Naprosyn) 500 mg PO BID PRN pain #20 tabs 04/28/25 Unknown Rx Allergy/AdvReac Type Severity Reaction Status Date / Time No Known Allergies Allergy Verified 08/23/24 10:41 Family History Other Colon cancer Surgical History Hx of eye surgery Hx of surgical procedure Social History Smoking Status: Never smoker ROS <KERRY Rodriguez - Last Filed: 08/23/24 14:25> ROS ED Constitutional Constitutional ED: Denies chills or fever(s) Cardiovascular Cardiovascular: Denies chest pain Respiratory/Chest Respiratory/Chest: Denies dyspnea Genitourinary Genitourinary ED: Denies dysuria, hematuria or urinary urgency Musculoskeletal Musculoskeletal: Reports back pain Integumentary Denies rash Neurologic Neurologic: Reports paresthesias EXAM <KERRY Rodriguez - Last Filed: 08/23/24 14:25> Physical Exam Const Vital Signs: 08/23/24 10:41 08/23/24 13:53 Temperature 97.7 F L 98.2 F Temperature Source Oral Pulse Rate 69 64 Respiratory Rate 16 18 Blood Pressure 113/81 H 126/67 H Blood Pressure Mean 91 86 Pulse Ox 100 98 Oxygen Delivery Method Room Air Positive well nourished, well developed and no apparent distress General Appearance ED: well developed HEENT Reports normocephalic and head/scalp atraumatic Mouth ED: Yes moist mucous membranes normal Eyes PERRL and EOMs intact bilaterally Neck full ROM and supple Chest Wall inspection of chest normal Resp normal respiratory effort and clear to auscultation bilaterally Cardio regular rate and regular rhythm Back/Spine normal ROM and normal to inspection Back/Spine Narrative: Pain to palpation to the right thoracic paraspinal muscles, no midline cervical, thoracic, or lumbar tenderness. Extremity normal to inspection and full ROM Extremity Narrative: Limited range of motion to the right shoulder due to pain, no overlying rash or signs of infection. Right radial pulse 2+, good cap refill, sensation intact. Patient reports slight decrease sensation to the right upper extremity in comparison to the left Neuro oriented x3, CN's II-XII intact bilaterally, moves all extremities, no focal motor deficits and no sensory deficits noted Sensorium / Orientation: awake and alert Motor Exam: strength 5/5 throughout Psych mental status grossly normal and thought process normal Skin no rashes or lesions noted and no wounds <Dr. Titus Stevens, - Last Filed: 08/23/24 16:24> Physical Exam Const Vital Signs: 08/23/24 10:41 08/23/24 13:53 Temperature 97.7 F L 98.2 F Temperature Source Oral Pulse Rate 69 64 Respiratory Rate 16 18 Blood Pressure 113/81 H 126/67 H Blood Pressure Mean 91 86 Pulse Ox 100 98 Oxygen Delivery Method Room Air [facility] <KERRY Rodriguez - Last Filed: 08/23/24 14:25> [facility] Narrative Medical decision making narrative: Patient presenting today with right upper back pain he has had since yesterday after lifting his son up off the ground. He reports getting immediate pain to his right upper back and right shoulder. He has had mild paresthesias to his right upper extremity since the pain started. He reports he has had them in the past and has a history of a partial rotator cuff tear. He has slightly limited range of motion to the right shoulder secondary to pain. He has reproducible tenderness to his right thoracic paraspinal muscles and right trapezius muscle. Examination is consistent with musculoskeletal back pain. Right upper extremity neurovascularly intact. He was given IM Toradol and Skelaxin here for his pain, I will give him prescriptions for naproxen and Skelaxin. Recommended he follow-up with his PCP. He has no red flag symptoms of his pain, examination not consistent with cauda equina or spinal abscess. He will be discharged home in stable condition. <Dr. Titus Stevens, - Last Filed: 08/23/24 16:24> [facility] Treatment and Re-Evaluation Narrative: Attending note: I have personally performed a face to face assessment of the patient and have reviewed the DEMOND note. I personally made/approved the management plan and take responsibility for the patient management. I performed a substantive portion of the visit including all aspects of the following. My loyd findings include: Nontraumatic pain upper right thoracic and the back. Pain with movement. Picking up his 20 pound kid multiple times. He has had rotator cuff issues in the past has not had issues with the back previously. On exam there is parathoracic somatic dysfunction thoracic spine. No midline tenderness. Full range of motion right upper extremity. Patient initially treated with muscle relaxants and NSAIDs. Exam with somatic function discussed osteopathic manipulation. Which she agreed. HVLA performed standing position of the thoracic spine with relief of symptoms with improved movement. He will continue NSAIDs and muscle relaxer with outpatient follow-up. Discharge Plan Triage Chief Complaint: Back ED Midlevel Provider: Yuko Clark ED Provider: Titus Stevens Dx/Rx/DC Orders Clinical Impression: Strain of thoracic back region, Somatic dysfunction of spine, thoracic Instructions: ED Thoracic Spine Strain, ED Paraesthesias Prescriptions: New naproxen [Naprosyn] 500 mg tablet 500 mg PO BID PRN (Reason: pain) Qty: 20 0RF metaxalone 800 mg tablet 800 mg PO TID PRN (Reason: muscle pain) Qty: 21 0RF No Action rizatriptan 10 mg tablet,disintegrating See Rx Instructions PO .COMPLEX Rx Instructions: take 1 tab at onset of headache; if no relief may repeat 1 tab after at least 2 hrs; max = 3 tabs/24 hr PO ropinirole 0.25 mg tablet 0.5 mg PO QHS Rx Instructions: administer 1-3 hours before bedtime cyanocobalamin (vitamin B-12) 1,000 mcg tablet 1,000 mcg PO QDAY magnesium oxide 420 mg tablet 420 mg PO QDAY omeprazole 20 mg tablet,delayed release (DR/EC) 20 mg PO QDAY riboflavin (vitamin B2) 100 mg tablet 200 mg PO BID atenolol 25 mg tablet 25 mg PO DAILY Patient Comments: PT NOT SURE OF THIS DOSE [facility] [Primary Care Provider] - Activity Restrictions/Additional Instructions: Follow-up with your PCP and return for any worsening symptoms. You can also take Tylenol for pain as needed. Print Language: Citizen Of [place] Disposition Disposition: Home, Self Care Discharge Date/Time: 08/23/24 13:54
[2024-08-23] MEDS: Ketorolac 30 MG/ML Syringe IM (13:07)
[2024-08-23] MEDS: Metaxalone 800 MG Tablet PO (13:13)
[2024-08-23 13:53] VITALS: BP 126/67; PULSE 64; RESP 18; TEMP 36.8; O2SAT 98
== END 2024-08-23 13:54 | disposition home or self-care (01) ==
PROVIDERS: Emergency Provider Emergency Medicine; Visit Provider Emergency Medicine
DX: S29.012A Strain of muscle and tendon of back wall of thorax, initial encounter (principal); M99.02 Segmental and somatic dysfunction of thoracic region; Z79.899 Other long term (current) drug therapy; X58.XXXA Exposure to other specified factors, initial encounter
CPT/HCPCS: 96372; 99282